=== PATIENT | male | born 1965 | race Caucasian/White ===

== ENCOUNTER → 2018-02-15 | Outpatient (CLI) | payer BC ==
[~2018-02-15] MED LIST: ASPI-COR81 M1 PO; CHONDROITIN/GLU1 TA5 PO; COZAAR100 MG PO; FISH OIL SUPER1 SGL PO; GLUCOSAMINE500 MG PO; HYDROCODONE BIT1 T11 PO; KEFLEX500 MG PO; NEXIUM40 MG PO; PRAVACHOL40 MG PO; REGLAN5 MG PO
[2018-02-15 10:53] LABS: ALBUMIN 3.9 gm/dl (3.1-4.5); ALKALINE PHOSPHATASE 73 U/L (45-117); BUN 13 mg/dl (7-24); CHLORIDE 108 mmol/L (98-107); CREATININE 0.91 mg/dL (0.70-1.30); IRON 117 ug/dL (65-175); LIPASE 79 U/L (73-393); POTASSIUM 3.6 mmol/L (3.5-5.1); SGOT/AST 14 IU/L (3-35); SGPT/ALT 27 U/L (12-78); SODIUM 141 mmol/L (136-145); TOTAL IRON BINDING CAPACITY 283 ug/dl (250-450); TOTAL PROTEIN 7.2 gm/dL (6.4-8.2)
[2018-02-15 12:20] LABS: FERRITIN 156.5 ng/mL (22.0-322.0); VITAMIN D, 25-HYDROXY 25.7 ng/mL (30-100)
== END | disposition home or self-care (01) ==
LOC: LAB 09:54
PROVIDERS: Surgery
DX: E66.01 Morbid (severe) obesity due to excess calories (principal)